=== PATIENT | male | born 1935 | race Caucasian/White ===

== ENCOUNTER 2023-07-30 02:36 | Outpatient (REF) | payer MEDICARE, MEDICAID, SELFPAY ==
--- OUTSIDE RECORDS SUMMARY | 2023-07-30 02:41 | XMS_ITS | CCD ---
Author Organization [facility] Care Team Providers Care Pitching Coach Name Role Phone Shea, Terrence R. Unavailable Unavailable Shea, Terrence R. Unavailable Unavailable Shea, Terrence R. Unavailable Unavailable Hoy, [phone] UNKNOWN Unavailable Unavailable Shea, Terrence R. Unavailable Unavailable Shea, Terrence R. Unavailable Unavailable Shea, Terrence R. Unavailable Unavailable Hoy, [phone] UNKNOWN Unavailable Unavailable MISC, DR WINSTON Admitting Unavailable MISC, DR WINSTON Attending Unavailable HOY ., DR HOLLIS Primary Care Unavailable MISC, DR WINSTON Consulting Unavailable HOY ., DR HOLLIS Admitting Unavailable HOY ., DR HOLLIS Attending Unavailable HOY ., DR HOLLIS Primary Care Unavailable HOY ., DR HOLLIS Consulting Unavailable HOY ., DR HOLLIS Admitting Unavailable HOY ., DR HOLLIS Attending Unavailable HOY ., DR HOLLIS Primary Care Unavailable HOY ., DR HOLLIS Consulting Unavailable HOY ., DR HOLLIS Primary Care Unavailable PAY ., DR HARRINGTON Admitting Unavailable PAY ., DR HARRINGTON Attending Unavailable ZIEBER, DR PETER Johansen Consulting Unavailable PAY ., DR HARRINGTON Consulting Unavailable HOY ., DR HOLLSI Primary Care Unavailable HOY ., DR HOLLIS Admitting Unavailable HOY ., DR HOLLIS Attending Unavailable HOY ., DR HOLLIS Consulting Unavailable LAZCANO ., DR FÁTIMA [place] Consulting Unavailable ZIEBER, DR PETER Johansen Consulting Unavailable HAY ., DR LOPEZ Consulting Unavailable HOY ., DR HOLLIS Admitting Unavailable HOY ., DR HOLLIS Attending Unavailable HOY ., DR HOLLIS Primary Care Unavailable HOY ., DR HOLLIS Consulting Unavailable Allergies Allergy Classification Reported Allergen(s) Allergy Type Date of Onset Reaction(s) Facility (1 source) penicillin; Translations: [penicillin] Drug Allergy [facility] Repository (1 source) Sulfonamides (Antibiotic); Translations: [sulfa drugs] Propensity to adverse reactions (disorder) AOF [facility] Repository (1 source) Penicillins Drug allergy (disorder) 4 [facility] Repository (1 source) Sulfonamides (Antibiotic) Drug allergy (disorder) 4 [facility] Repository Problems Active Problems Problem Classification Problem Date Documented Da te Episodic/Chronic Asthma (1 source) Unspecified asthma, uncomplicated; Translations: [UNSPECIFIED ASTHMA UNCOMPLICATED] Onset: 02-04-2022 Chronic Diabetes mellitus without complication (5 sources) Type 2 diabetes mellitus without complications; Translations: [TYPE 2 DM WITHOUT COMPLICATIONS] Onset: 01-01-2022 Chronic Essential hypertension (5 sources) Essential (primary) hypertension; Translations: [ESSENTIAL PRIMARY HYPERTENSION] Onset: 12-29-2021 Chronic Hyperplasia of prostate (1 source) Benign prostatic hyperplasia without lower urinary tract symptoms; Translations: [BENIGN PROSTATIC HYPRPLASIA WO LUTS] Onset: 02-04-2022 Chronic Unclassified (1 source) CONTACT W/AND (SUSP) EXPOS COVID-19; Translations: [CONTACT W/AND (SUSP) EXPOS COVID-19] Onset: 01-07-2022 Past or Other Problems Problem Classification Problem Date Documented Date Episodic/Chronic Abdominal pain (3 sources) Unspecified abdominal pain; Translations: [UNSPECIFIED ABDOMINAL PAIN] Onset: 01-02-2022 Episodic Acute and unspecified renal failure (1 source) Acute kidney failure, unspecified; Translations: [ACUTE KIDNEY FAILURE UNSPECIFIED] Onset: 01-07-2022 Episodic Biliary tract disease (1 source) Calculus of gallbladder with chronic cholecystitis without obstruction; Translations: [CALCU GB W/CHRON CHOLECYST W/O OBST] Onset: 01-07-2022 Episodic Diabetes mellitus without complication (1 source) Hyperglycemia, unspecified; Translations: [HYPERGLYCEMIA UNSPECIFIED] Onset: 01-07-2022 Episodic E Codes: Fall (1 source) Fall on same level from slipping, tripping and stumbling with subsequent striking against unspecified object, initial encounter; Translations: [FALL SAME LVL SLIP STRK UNS OBJ INT] Onset: 02-04-2022 Episodic Fluid and electrolyte disorders (5 sources) Dehydration; Translations: [DEHYDRATION] Onset: 01-01-2022 Episodic Genitourinary symptoms and ill-defined conditions (1 source) Anuria and oliguria; Translations: [ANURIA AND OLIGURIA] Onset: 01-07-2022 Episodic Immunizations and screening for infectious disease (1 source) Encounter for immunization; Translations: [ENCOUNTER FOR IMMUNIZATION] Onset: 02-04-2022 Episodic Open wounds of extremities (2 sources) Laceration without foreign body of left forearm, initial encounter; Translations: [Laceration without foreign body of left hand, initial encounter] Onset: 02-04-2022 Episodic Other aftercare (1 source) USP (current) use of aspirin; Translations: [SEAM STAY STITCHER CURRENT USE OF ASPIRIN] Onset: 02-04-2022 Episodic Other aftercare (1 source) Other senior care (current) drug therapy; Translations: [OTH SEAM STAY STITCHER CURRENT DRUG THERAPY] Onset: 02-04-2022 Episodic Other injuries and conditions due to external causes (4 sources) Other specified injuries of head, initial encounter; Translations: [OTH SPEC INJURIES HEAD INITIAL ENC] Onset: 02-02-2022 Episodic Other screening for suspected conditions (not mental disorders or infectious disease) (1 source) Other specified abnormal findings of blood chemistry; Translations: [OTH SPEC ABNORMAL FINDINGS BLD CHEM] Onset: 01-07-2022 Episodic Pulmonary heart disease (1 source) Personal history of pulmonary embolism; Translations: [PERSONAL HISTORY PULMONARY EMBOLISM] Onset: 02-04-2022 Episodic Residual codes; unclassified (1 source) Altered mental status, unspecified; Translations: [ALTERED MENTAL STATUS UNSPECIFIED] Onset: 01-01-2022 Episodic Screening and history of mental health and substance abuse codes (1 source) Personal history of nicotine dependence; Translations: [PERSONAL HISTORY OF NICOTINE DEPEND] Onset: 02-04-2022 Episodic Superficial injury; contusion (1 source) Contusion of other part of head, initial encounter; Translations: [CONTUS OTH PRT HEAD INITIAL ENCNTR] Onset: 02-04-2022 Episodic Urinary tract infections (5 sources) Acute cystitis with hematuria; Translations: [Urinary tract infection, site not specified] Onset: 01-07-2022 Episodic Results Test Name Value Interpretation Reference Range Facility CREATININEon 09-16-2022 Creatinine [Mass/Vol] 1.47 mg/dL Critically high 0.70-1.30 [facility] Comment on above: Performed By: #### C JESUS #### [facility] [address] [address] [address] Susan Matt EGFR-AF MONTENEGRIN 55 mL/min/1.73m2 Critically low >=60 [facility] Comment on above: Performed By: #### C JESUS #### [facility] [address] [address] [address] Susan Matt EGFR-NON AF MONTENEGRIN 45 mL/min/1.73m2 Critically low >=60 [facility] Comment on above: Performed By: #### C JESUS #### [facility] [address] [address] [address] Susan Matt GLYCOHEMOGLOBIN A1Con 2022 ADA RECOMMENDATION SEE BELOW Normal [facility] Comment on above: Result Comment: ADA RECOMMENDED LIMIT 4.0 - 6.0 ADA THERAPEUTIC TARGET < 7.0 ACTION SUGGESTED > 7.0 Performed By: #### I UMA B12FOL, PSAD, FERR #### [facility] [address] [address] [address] Susan Matt Glucose [Mass/Vol] 143 mg/dL Normal [facility] Comment on above: Performed By: #### I Kris EATONFOL PSAD, FERR #### [facility] [address] [address] [address] Susan Matt HbA1c (Bld) [Mass fraction] 6.6 % Critically high 4.5-6.2 [facility] Comment on above: Performed By: #### I UMA B12FOL, PSAD, FERR #### [facility] [address] [place] [address] HEAD WO CONon 02-02-2022 CT HEAD WO CON EXAMINATION: CT HEAD WO CON HISTORY: HEADACHE ; fell hitting top of head on floor; left periorbital bruising COMPARISON: No relevant comparison available. TECHNIQUE: Axial CT images were obtained without IV contrast. Dose reduction techniques were achieved by using automated exposure control and/or adjustment of mA and/or kV according to patient size and/or use of iterative reconstruction technique. FINDINGS: BRAIN: No edema, hemorrhage, mass, acute infarction, or inappropriate atrophy. CSF SPACES: No hydrocephalus, subarachnoid hemorrhage, or mass. Appropriate for age. SKULL: No fracture, mass, or other significant visible lesion. SINUSES: No significant mucosal thickening or fluid on the limited views. ORBITS: No appreciable abnormality on the limited views. OTHER: Mild subcutaneous edema/bruising cephalad to left orbit. No radiopaque foreign body. IMPRESSION: 1. No appreciable acute abnormality of the brain; age consistent chronic changes. 2. No fracture or calvarium. 3. Mild left supraorbital subcutaneous edema/bruising. No fracture. Electronically authenticated by: PETER REBOLLAR Date: 2022-02-02 11:57 Normal [facility] CULTURE URINEon 01-21-2022 CULTURE URINE Culture Observations : MODERATE GROWTH OF MIXED SKIN [place]COL[place]. NO POTENTIAL PATHOGENS SEEN. Normal [facility] Comment on above: Performed By: #### L IPA #### [facility] [address] [place] [address] Dr. Susan Matt UA RANDOM W/MICROSCOPICon BACTERIA NONE SEEN Normal NONE SEEN [facility] Comment on above: Performed By: #### L ACT #### [facility] [address] [place] [address] Dr. Susan Matt Bilirubin Ql (U) Negative Normal NEGATIVE [facility] Comment on above: Performed By: #### L ACT #### [facility] [address] [place] [address] Dr. Susan Matt CAST SEEN Abnormal NONE SEEN [facility] Comment on above: Performed By: #### L ACT #### [facility] [address] [place] [address] Dr. Susan Matt Clarity (U) CLEAR Normal CLEAR [facility] Comment on above: Performed By: #### L ACT #### [facility] [address] [place] [address] Dr. Susan Matt Color (U) YELLOW Normal YELLOW [facility] Comment on above: Performed By: #### L ACT #### [facility] [address] [place] [address] Dr. Susan Matt Crystals LM Nom (Urine sed) NONE SEEN Normal NONE SEEN [facility] Comment on above: Performed By: #### L ACT #### [facility] [address] [address] [address] Susan Matt Epithelial cells LM Ql (Urine sed) RARE Normal NONE SEEN /RARE [facility] Comment on above: Performed By: #### L ACT #### [facility] [address] [address] [address] Susan Matt Glucose Ql (U) Negative Normal NEGATIVE [facility] Comment on above: Performed By: #### L ACT #### [facility] [address] [place] [address] Dr. Susan Matt Hemoglobin Ql (U) Negative Normal NEGATIVE [facility] Comment on above: Performed By: #### L ACT #### [facility] [address] [place] [address] Dr. Susan Matt HYALINE CAST RARE Normal [facility] Comment on above: Performed By: #### L ACT #### [facility] [address] [place] [address] Dr. Susan Matt Ketones Ql (U) Negative Normal NEGATIVE [facility] Comment on above: Performed By: #### L ACT #### [facility] [address] [address] [address] Susan Matt LEUKOCYTES Negative Normal NEGATIVE [facility] Comment on above: Performed By: #### L ACT #### [facility] [address] [place] [address] Dr. Susan Matt MUCOUS NONE SEEN Normal NONE SEEN [facility] Comment on above: Performed By: #### L ACT #### [facility] [address] [place] [address] Dr. Susan Matt Nitrite Ql (U) Negative Normal NEGATIVE [facility] Comment on above: Performed By: #### L ACT #### [facility] [address] [place] [address] Dr. Susan Matt pH (U) 6.0 [pH] Normal 5-9 [facility] Comment on above: Performed By: #### L ACT #### [facility] [address] [place] [address] Dr. Susan Matt RBC 0-2 Normal 0-2 [facility] Comment on above: Performed By: #### L ACT #### [facility] [address] [place] [address] Dr. Susan Matt SPEC GRAVITY 1.025 Normal 1.005-<=1.025 [facility] Comment on above: Performed By: #### L ACT #### [facility] [address] [place] [address] Dr. Susan Matt SPERMATOZOA, UR PRESENT Abnormal [facility] Comment on above: Performed By: #### L ACT #### [facility] [address] [place] [address] Dr. Susan Matt UA PROTEIN Negative Normal NEGATIVE/ TRACE [facility] Comment on above: Performed By: #### L ACT #### [facility] [address] [place] [address] Dr. Susan Matt Urobilinogen Qn (U) 0.2 {Adwoa'U}/dL Normal 0.2 - 1. 0 [facility] Comment on above: Performed By: #### L ACT #### [facility] [address] [place] [address] Dr. Susan Matt WBC 2-5 Abnormal NONE SEEN [facility] Comment on above: Performed By: #### L ACT #### [facility] [address] [place] [address] Dr. Susan Matt AMYLASEon 01-04-2022 Amylase [Catalytic activity/Vol] 35 U/L Normal 25-115 [facility] Comment on above: Performed By: #### I UMA, B12FOL, PSAD, FERR #### [facility] [address] [place] [address] Dr. Susan Matt CBC AUTO DIFFon 01-04-2022 BASO # 0.1 103/ul Normal 0.0-0.1 [facility] Comment on above: Performed By: #### I UMA, B12FOL, PSAD, FERR #### [facility] [address] [place] [address] Dr. Susan Matt Basophils/100 WBC (Bld) 0.9 % Normal 0.2-2.0 [facility] Comment on above: Performed By: #### I UMA, B12FOL, PSAD, FERR #### [facility] [address] [place] [address] Dr. Susan Matt EO # 0.5 103/ul Normal 0.0-0.7 [facility] Comment on above: Performed By: #### I UMA, B12FOL, PSAD, FERR #### [facility] [address] [place] [address] Dr. Susan Matt Eosinophils/100 WBC (Bld) 6.6 % Normal 0.9-7.0 [facility] Comment on above: Performed By: #### I UMA, B12FOL, PSAD, FERR #### [facility] [address] [place] [address] Dr. Susan Matt Erythrocyte distribution width (RBC) [Ratio] 13.7 % Normal 11.0-15.0 [facility] Comment on above: Performed By: #### I UMA, B12FOL, PSAD, FERR #### [facility] [address] [place] [address] Dr. Susan Matt Hematocrit (Bld) [Volume fraction] 36.0 % Critically low 42.0-54.0 [facility] Comment on above: Performed By: #### I UMA, B12FOL, PSAD, FERR #### [facility] [address] [place] [address] Dr. Susan Matt Hemoglobin (Bld) [Mass/Vol] 11.9 g/dL Critically low 14.0-18.0 [facility] Comment on above: Performed By: #### I UMA, B12FOL, PSAD, FERR #### [facility] [address] [place] [address] Dr. Susan Matt IG # 0.13 10e3/ul Critically high 0.00-0.03 [facility] Comment on above: Performed By: #### I UMA, B12FOL, PSAD, FERR #### [facility] [address] [place] [address] Dr. Susan Matt IG % 1.6 % Critically high 0.0-0.5 [facility] Comment on above: Performed By: #### I MUA, B12FOL, PSAD, FERR #### [facility] [address] [place] [address] Dr. Susan Matt LYMPH # 0.6 103/ul Critically low 1.2-3.8 [facility] Comment on above: Performed By: #### I UMA, B12FOL, PSAD, FERR #### [facility] [address] [place] [address] Dr. Susan Matt Lymphocytes/100 WBC (Bld) 7.0 % Critically low 20.5-60.0 [facility] Comment on above: Performed By: #### I UMA, B12FOL, PSAD, FERR #### [facility] [address] [place] [address] Dr. Susan Matt MANUAL DIFF REQ NO Normal [facility] Comment on above: Performed By: #### I UMA, B12FOL, PSAD, FERR #### [facility] [address] [place] [address] Dr. Susan Matt MCH (RBC) [Entitic mass] 31.7 pg Normal 25.9-34.0 [facility] Comment on above: Performed By: #### I UMA, B12FOL, PSAD, FERR #### [facility] [address] [place] [address] Dr. Susan Matt MCHC (RBC) [Mass/Vol] 33.1 g/dL Normal 29.9-35.2 [facility] Comment on above: Performed By: #### I UMA, B12FOL, PSAD, FERR #### [facility] [address] [place] [address] Dr. Susan Matt MCV (RBC) [Entitic vol] 96.0 fL Critically high 80.0-94.0 [facility] Comment on above: Performed By: #### I UMA, B12FOL, PSAD, FERR #### [facility] [address] [place] [address] Dr. Susan Matt MONO # 1.0 103/ul Critically high 0.3-0.8 [facility] Comment on above: Performed By: #### I UMA, B12FOL, PSAD, FERR #### [facility] [address] [place] [address] Dr. Susan Matt Monocytes/100 WBC (Bld) 12.6 % Critically high 1.7-12.0 [facility] Comment on above: Performed By: #### I UMA, B12FOL, PSAD, FERR #### [facility] [address] [place] [address] Dr. Susan Matt NEUT # 5.7 103/ul Normal 1.4-6.5 [facility] Comment on above: Performed By: #### I UMA, B12FOL, PSAD, FERR #### [facility] [address] [place] [address] Dr. Susan Matt Neutrophils/100 WBC (Bld) 71.3 % Normal 43.0-75.0 [facility] Comment on above: Performed By: #### I UMA, B12FOL, PSAD, FERR #### [facility] [address] [place] [address] Dr. Susan Matt Platelet mean volume (Bld) [Entitic vol] 12.2 fL Normal 9.5-13.5 [facility] Comment on above: Performed By: #### I UMA, B12FOL, PSAD, FERR #### [facility] [address] [place] [address] Dr. Susan Matt PLT 156 103/ul Normal 150-450 [facility] Comment on above: Performed By: #### I UMA, B12FOL, PSAD, FERR #### [facility] [address] [place] [address] Dr. Susan Matt RBC 3.75 106/ul Critically low 4.70-6.10 [facility] Comment on above: Performed By: #### I UMA, B12FOL, PSAD, FERR #### [facility] [address] [place] [address] Dr. Susan Matt WBC 8.0 103/ul Normal 4.0-11.0 [facility] Comment on above: Performed By: #### I UMA, B12FOL, PSAD, FERR #### [facility] [address] [place] [address] Dr. Susan Matt LIPASEon 01-04-2022 Lipase [Catalytic activity/Vol] 34.0 U/L Critically low 73.0-393.0 [facility] Comment on above: Performed By: #### L ACT #### [facility] [address] [place] [address] Dr. Susan Matt POINT OF CARE GLUCOSEon 12-09 Glucose [Mass/Vol] 184 mg/dL Critically high 74-106 [facility] Comment on above: Performed By: #### I UMA, B12FOL, PSAD, FERR #### [facility] [address] [place] [address] Dr. Susan Matt Glucose [Mass/Vol] 212 mg/dL Critically high 74-106 [facility] Comment on above: Performed By: #### I UMA, B12FOL, PSAD, FERR #### [facility] [address] [place] [address] Dr. Susan Matt PROF 14(COMP METB)on 022 Albumin [Mass/Vol] 2.6 g/dL Critically low 3.4-5.0 [facility] Comment on above: Performed By: #### I UMA, B12FOL, PSAD, FERR #### [facility] [address] [place] [address] Dr. Susan Matt Albumin/Globulin [Mass ratio] 0.9 {ratio} Normal [facility] Comment on above: Performed By: #### I UMA, B12FOL, PSAD, FERR #### [facility] [address] [place] [address] Dr. Susan Matt ALP [Catalytic activity/Vol] 77 U/L Normal 46-116 [facility] Comment on above: Performed By: #### I UMA, B12FOL, PSAD, FERR #### [facility] [address] [place] [address] Dr. Susan Matt ALT [Catalytic activity/Vol] 29 U/L Normal 16-63 [facility] Comment on above: Performed By: #### I UMA, B12FOL, PSAD, FERR #### [facility] [address] [place] [address] Dr. Susan Matt Anion gap [Moles/Vol] 11.6 mmol/L Normal [facility] Comment on above: Performed By: #### I UMA, B12FOL, PSAD, FERR #### [facility] [address] [place] [address] Dr. Susan Matt AST [Catalytic activity/Vol] 15 U/L Normal 15-37 [facility] Comment on above: Performed By: #### I UMA, B12FOL, PSAD, FERR #### [facility] [address] [place] [address] Dr. Susan Matt Bilirubin [Mass/Vol] 0.3 mg/dL Normal 0.2-1.0 [facility] Comment on above: Performed By: #### I UMA, B12FOL, PSAD, FERR #### [facility] [address] [place] [address] Dr. Susan Matt Calcium [Mass/Vol] 8.2 mg/dL Critically low 8.5-10.1 [facility] Comment on above: Performed By: #### I UMA, B12FOL, PSAD, FERR #### [facility] [address] [place] [address] Dr. Susan Matt Chloride [Moles/Vol] 107 mmol/L Normal 98-107 [facility] Comment on above: Performed By: #### I UMA, B12FOL, PSAD, FERR #### [facility] [address] [place] [address] Dr. Susan Matt CO2 [Moles/Vol] 26.1 mmol/L Normal 21.0-32.0 [facility] Comment on above: Performed By: #### I UMA, B12FOL, PSAD, FERR #### [facility] [address] [place] [address] Dr. Susan Matt Creatinine [Mass/Vol] 1.19 mg/dL Normal 0.70-1.30 [facility] Comment on above: Performed By: #### I UMA, B12FOL, PSAD, FERR #### [facility] [address] [place] [address] Dr. Susan Matt EGFR-AF MONTENEGRIN >60 Normal >=60 [facility] Comment on above: Performed By: #### I UMA, B12FOL, PSAD, FERR #### [facility] [address] [place] [address] Dr. Susan Matt EGFR-NON AF MONTENEGRIN 58 mL/min/1.73m2 Critically low >=60 [facility] Comment on above: Performed By: #### I UMA, B12FOL, PSAD, FERR #### [facility] [address] [place] [address] Dr. Susan Matt Globulin (S) [Mass/Vol] 2.8 g/dL Normal [facility] Comment on above: Performed By: #### I UMA, B12FOL, PSAD, FERR #### [facility] [address] [place] [address] Dr. Susan Matt Glucose [Mass/Vol] 118 mg/dL Critically high 74-106 [facility] Comment on above: Performed By: #### I UMA, B12FOL, PSAD, FERR #### [facility] [address] [place] [address] Dr. Susan Matt Potassium [Moles/Vol] 3.7 mmol/L Normal 3.5-5.1 [facility] Comment on above: Performed By: #### I UMA, B12FOL, PSAD, FERR #### [facility] [address] [address] [address] Susan Matt Protein [Mass/Vol] 5.4 g/dL Critically low 6.4-8.2 [facility] [place] Comment on above: Performed By: #### I UMA, B12FOL, PSAD, FERR #### [facility] [address] [place] [address] Dr. Susan Matt Sodium [Moles/Vol] 141 mmol/L Normal 136-145 [facility] Comment on above: Performed By: #### I UMA, B12FOL, PSAD, FERR #### [facility] [address] [place] [address] Dr. Susan Matt Urea nitrogen [Mass/Vol] 16.0 mg/dL Normal 7.0-18.0 [facility] Comment on above: Performed By: #### I UMA, B12FOL, PSAD, FERR #### [facility] [address] [place] [address] Dr. Susan Matt Urea nitrogen/Creatinine [Mass ratio] 13.4 mg/mg Normal [facility] Comment on above: Performed By: #### I UMA, B12FOL, PSAD, FERR #### [facility] [address] [place] [address] Dr. Susan Matt AMYLASEon 01-03-2022 Amylase [Catalytic activity/Vol] 39 U/L Normal 25-115 [facility] Comment on above: Performed By: #### I UMA, B12FOL, PSAD, FERR #### [facility] [address] [place] [address] Dr. Susan Matt CBC AUTO DIFFon 01-03-2022 BASO # 0.1 103/ul Normal 0.0-0.1 [facility] Comment on above: Performed By: #### C BC #### [facility] [address] [place] [address] Dr. Susan Matt Basophils/100 WBC (Bld) 0.8 % Normal 0.2-2.0 [facility] Comment on above: Performed By: #### C BC #### [facility] [address] [place] [address] Dr. Susan Matt EO # 0.5 103/ul Normal 0.0-0.7 [facility] Comment on above: Performed By: #### C BC #### [facility] [address] [place] [address] Dr. Susan Matt Eosinophils/100 WBC (Bld) 5.9 % Normal 0.9-7.0 [facility] Comment on above: Performed By: #### C BC #### [facility] [address] [place] [address] Dr. Susan Matt Erythrocyte distribution width (RBC) [Ratio] 13.6 % Normal 11.0-15.0 [facility] Comment on above: Performed By: #### C BC #### [facility] [address] [place] [address] Dr. Susan Matt Hematocrit (Bld) [Volume fraction] 36.8 % Critically low 42.0-54.0 [facility] Comment on above: Performed By: #### C BC #### [facility] [address] [place] [address] Dr. Susan Matt Hemoglobin (Bld) [Mass/Vol] 12.2 g/dL Critically low 14.0-18.0 [facility] Comment on above: Performed By: #### C BC #### [facility] [address] [place] [address] Dr. Susan Matt IG # 0.13 10e3/ul Critically high 0.00-0.03 [facility] Comment on above: Performed By: #### C BC #### [facility] [address] [place] [address] Dr. Susan Matt IG % 1.5 % Critically high 0.0-0.5 [facility] Comment on above: Performed By: #### C BC #### [facility] [address] [place] [address] Dr. Susan Matt LYMPH # 0.9 103/ul Critically low 1.2-3.[address] [facility] Comment on above: Performed By: #### C BC #### [facility] [address] [place] [address] Dr. Susan Matt Lymphocytes/100 WBC (Bld) 10.1 % Critically low 20.5-60.0 [facility] Comment on above: Performed By: #### C BC #### [facility] [address] [place] [address] Dr. Susan Matt MANUAL DIFF REQ NO Normal [facility] Comment on above: Performed By: #### C BC #### [facility] [address] [place] [address] Dr. Susan Matt MCH (RBC) [Entitic mass] 31.5 pg Normal 25.9-34.0 [facility] Comment on above: Performed By: #### C BC #### [facility] [address] [address] [address] Susan Matt MCHC (RBC) [Mass/Vol] 33.2 g/dL Normal 29.9-35.2 [facility] Comment on above: Performed By: #### C BC #### [facility] [address] [address] [address] Susan Matt MCV (RBC) [Entitic vol] 95.1 fL Critically high 80.0-94.0 [facility] Comment on above: Performed By: #### C BC #### [facility] [address] [place] [address] Dr. Susan Matt MONO # 1.1 103/ul Critically high 0.3-0.8 [facility] Comment on above: Performed By: #### C BC #### [facility] [address] [place] [address] Dr. Susan Matt Monocytes/100 WBC (Bld) 12.0 % Normal 1.7-12.0 [facility] Comment on above: Performed By: #### C BC #### [facility] [address] [place] [address] Dr. Susan Matt NEUT # 6.1 103/ul Normal 1.4-6.5 [facility] Comment on above: Performed By: #### C BC #### [facility] [address] [place] [address] Dr. Susan Matt Neutrophils/100 WBC (Bld) 69.7 % Normal 43.0-75.0 [facility] Comment on above: Performed By: #### C BC #### [facility] [address] [place] [address] Dr. Susan Matt Platelet mean volume (Bld) [Entitic vol] 12.2 fL Normal 9.5-13.5 [facility] Comment on above: Performed By: #### C BC #### [facility] [address] [place] [address] Dr. Susan Matt PLT 156 103/ul Normal 150-450 [facility] Comment on above: Performed By: #### C BC #### [facility] [address] [address] [address] Susan Matt RBC 3.87 106/ul Critically low 4.70-6.10 [facility] Comment on above: Performed By: #### C BC #### [facility] [address] [place] [address] Dr. Susan Matt WBC 8.8 103/ul Normal 4.0-11.0 [facility] Comment on above: Performed By: #### C BC #### [facility] [address] [place] [address] Dr. Susan Matt CULTURE URINEon 01-03-2022 CULTURE URINE Culture Observations : HEAVY GROWTH OF MIXED SKIN LINCOLN. NO POTENTIAL PATHOGENS SEEN. Culture Observations: PLEASE RESUBMIT CLEAN CATCH MID-STREAM URINE IF CLINICALLY INDICATED. Normal [facility] Comment on above: Performed By: #### L IPA #### [facility] [address] [place] [address] Dr. Susan Matt LIPASEon 01-03-2022 Lipase [Catalytic activity/Vol] 43.0 U/L Critically low 73.0-393.0 [facility] Comment on above: Performed By: #### L IPA #### [facility] [address] [place] [address] Dr. Susan Matt POINT OF CARE GLUCOSEon 12-09 Glucose [Mass/Vol] 144 mg/dL Critically high 74-106 [facility] Comment on above: Performed By: #### I UMA, B12FOL, PSAD, FERR #### [facility] [address] [place] [address] Dr. Susan Matt Glucose [Mass/Vol] 167 mg/dL Critically high 74-106 [facility] Comment on above: Performed By: #### L IPA #### [facility] [address] [place] [address] Dr. Susan Matt Glucose [Mass/Vol] 173 mg/dL Critically high 74-106 [facility] Comment on above: Performed By: #### I UMA B12FOL, PSAD, FERR #### [facility] [address] [address] [address] Susan Matt PROF 14(COMP METB)on 022 Albumin [Mass/Vol] 2.8 g/dL Critically low 3.4-5.0 [facility] Comment on above: Performed By: #### L ACT #### [facility] [address] [place] [address] Dr. Susan Matt Albumin/Globulin [Mass ratio] 0.9 {ratio} Normal [facility] Comment on above: Performed By: #### L ACT #### [facility] [address] [place] [address] Dr. Susan Matt ALP [Catalytic activity/Vol] 91 U/L Normal 46-116 [facility] Comment on above: Performed By: #### L ACT #### [facility] [address] [place] [address] Dr. Susan Matt ALT [Catalytic activity/Vol] 31 U/L Normal 16-63 [facility] Comment on above: Performed By: #### L ACT #### [facility] [address] [place] [address] Dr. Susan Matt Anion gap [Moles/Vol] 12.4 mmol/L Normal [facility] Comment on above: Performed By: #### L ACT #### [facility] [address] [place] [address] Dr. Susan Matt AST [Catalytic activity/Vol] 15 U/L Normal 15-37 [facility] Comment on above: Performed By: #### L ACT #### [facility] [address] [place] [address] Dr. Susan Matt Bilirubin [Mass/Vol] 0.3 mg/dL Normal 0.2-1.0 [facility] Comment on above: Performed By: #### L ACT #### [facility] [address] [place] [address] Dr. Susan Matt Calcium [Mass/Vol] 8.2 mg/dL Critically low 8.5-10.1 [facility] Comment on above: Performed By: #### L ACT #### [facility] [address] [address] [address] Susan Matt Chloride [Moles/Vol] 107 mmol/L Normal 98-107 [facility] Comment on above: Performed By: #### L ACT #### [facility] [address] [address] [address] Susan Matt CO2 [Moles/Vol] 25.2 mmol/L Normal 21.0-32.0 [facility] Comment on above: Performed By: #### L ACT #### [facility] [address] [address] [address] Susan Matt Creatinine [Mass/Vol] 1.32 mg/dL Critically high 0.70-1.30 [facility] Comment on above: Performed By: #### L ACT #### [facility] [address] [address] [address] Susan Matt EGFR-AF MONTENEGRIN >60 Normal >=60 [facility] Comment on above: Performed By: #### L ACT #### [facility] [address] [address] [address] Susan Matt EGFR-NON AF MONTENEGRIN 51 mL/min/1.73m2 Critically low >=60 [facility] Comment on above: Performed By: #### L ACT #### [facility] [address] [address] [address] Susan Matt Globulin (S) [Mass/Vol] 3.0 g/dL Normal [facility] Comment on above: Performed By: #### L ACT #### [facility] [address] [address] [address] Susan Matt Glucose [Mass/Vol] 104 mg/dL Normal 74-106 [facility] Comment on above: Performed By: #### L ACT #### [facility] [address] [address] [address] Susan Matt Potassium [Moles/Vol] 3.6 mmol/L Normal 3.5-5.1 [facility] Comment on above: Performed By: #### L ACT #### [facility] [address] [address] [address] Susan Matt Protein [Mass/Vol] 5.8 g/dL Critically low 6.4-8.2 [facility] Comment on above: Performed By: #### L ACT #### [facility] [address] [place] [address] Dr. Susan Matt Sodium [Moles/Vol] 141 mmol/L Normal 136-145 [facility] Comment on above: Performed By: #### L ACT #### [facility] [address] [address] [address] Susan Matt Urea nitrogen [Mass/Vol] 27.0 mg/dL Critically high 7.0-18.0 [facility] Comment on above: Performed By: #### L ACT #### [facility] [address] [place] [address] Dr. Susan Matt Urea nitrogen/Creatinine [Mass ratio] 20.5 mg/mg Normal [facility] Comment on above: Performed By: #### L ACT #### [facility] [address] [place] [address] Dr. Susan Matt UA (CLEAN/CATCH) HARM REDUCTION WORKER/MICRO I F IND.on 01-03-2022 Bilirubin Ql (U) Negative Normal NEGATIVE [facility] Comment on above: Performed By: #### I UMA, B12FOL, PSAD, FERR #### [facility] [address] [place] [address] Dr. Susan Matt Clarity (U) CLEAR Normal CLEAR [facility] Comment on above: Performed By: #### I UMA, B12FOL, PSAD, FERR #### [facility] [address] [place] [address] Dr. Susan Matt Color (U) LT. YELLOW Normal YELLOW [facility] Comment on above: Performed By: #### I UMA, B12FOL, PSAD, FERR #### [facility] [address] [place] [address] Dr. Susan Matt Glucose Ql (U) Negative Normal NEGATIVE [facility] Comment on above: Performed By: #### I UMA, B12FOL, PSAD, FERR #### [facility] [address] [address] [address] Susan Matt Hemoglobin Ql (U) Negative Normal NEGATIVE [facility] Comment on above: Performed By: #### I UMA, B12FOL, PSAD, FERR #### [facility] [address] [place] [address] Dr. Susan Matt Ketones Ql (U) Negative Normal NEGATIVE [facility] Comment on above: Performed By: #### I UMA, B12FOL, PSAD, FERR #### [facility] [address] [place] [address] Dr. Susan Matt LEUKOCYTES SMALL Abnormal NEGATIVE [facility] Comment on above: Performed By: #### I UMA, B12FOL, PSAD, FERR #### [facility] [address] [place] [address] Dr. Susan Matt Nitrite Ql (U) Negative Normal NEGATIVE [facility] Comment on above: Performed By: #### I UMA, B12FOL, PSAD, FERR #### [facility] [address] [place] [address] Dr. Susan Matt pH (U) 6.0 [pH] Normal 5-9 [facility] Comment on above: Performed By: #### I UMA, B12FOL, PSAD, FERR #### [facility] [address] [place] [address] Dr. Susan Matt SPEC GRAVITY 1.015 Normal 1.005-<=1.025 [facility] Comment on above: Performed By: #### I UMA, B12FOL, PSAD, FERR #### [facility] [address] [place] [address] Dr. Susan Matt UA PROTEIN Negative Normal NEGATIVE/ TRACE [facility] Comment on above: Performed By: #### I UMA, B12FOL, PSAD, FERR #### [facility] [address] [place] [address] Dr. Susan Matt UR MICRO IND INDICATED Normal [facility] Comment on above: Performed By: #### I UMA, B12FOL, PSAD, FERR #### [facility] [address] [place] [address] Dr. Susan Matt Urobilinogen Qn (U) 0.2 {Adwoa'U}/dL Normal 0.2 - 1. 0 [facility] Comment on above: Performed By: #### I UMA, B12FOL, PSAD, FERR #### [facility] [address] [address] [address] Susan Matt URINE MICROSCOPIC ONLYon BACTERIA SMALL Abnormal NONE SEEN [facility] Comment on above: Performed By: #### I UMA, B12FOL, PSAD, FERR #### [facility] [address] [address] [address] Susan Matt Bacteria identified Cx Nom (U) INDICATED Normal [facility] Comment on above: Performed By: #### I UMA, B12FOL, PSAD, FERR #### [facility] [address] [place] [address] Dr. Susan Matt CAST NONE SEEN Normal NONE SEEN [facility] Comment on above: Performed By: #### I UMA, B12FOL, PSAD, FERR #### [facility] [address] [place] [address] Dr. Susan Matt Crystals LM Nom (Urine sed) NONE SEEN Normal NONE SEEN [facility] Comment on above: Performed By: #### I UMA, B12FOL, PSAD, FERR #### [facility] [address] [place] [address] Dr. Susan Matt Epithelial cells LM Ql (Urine sed) FEW Abnormal NONE SEEN /RARE [facility] Comment on above: Performed By: #### I UMA, B12FOL, PSAD, FERR #### [facility] [address] [place] [address] Dr. Susan Matt MUCOUS NONE SEEN Normal NONE SEEN [facility] Comment on above: Performed By: #### I UMA, B12FOL, PSAD, FERR #### [facility] [address] [place] [address] Dr. Susan Matt RBC 2-5 Abnormal 0-2 [facility] Comment on above: Performed By: #### I UMA, B12FOL, PSAD, FERR #### [facility] [address] [address] [address] Susan Matt WBC 75-100 Abnormal NONE SEEN [facility] Comment on above: Performed By: #### I UMA, B12FOL, PSAD, FERR #### [facility] [address] [place] [address] Dr. Susna Matt BNPon 01-02-2022 Natriuretic peptide B (Bld) [Mass/Vol] 449.0 pg/mL Normal <=1,800.0 [facility] Comment on above: Performed By: #### L ACT #### [facility] [address] [address] [address] Susan Matt CARDIAC DELMI ADMITon 022 CK [Catalytic activity/Vol] 99 U/L Normal 39-308 [facility] Comment on above: Performed By: #### L ACT #### [facility] [address] [place] [address] Dr. Susan Matt CK.MB [Mass/Vol] 2.29 ng/mL Normal <=3.60 [facility] Comment on above: Performed By: #### L ACT #### [facility] [address] [place] [address] Dr. Susan Matt HSTROP 11.1 pg/mL Normal 4.0-76.1 [facility] Comment on above: Result Comment: CUT- OFF POINTS HAVE BEEN ESTABLISHED BASED ON THE FOURTH UNIVERSAL DEFINITIONS OF MYOCARDIAL INFARCTION. THE UPPER REFERENCE LIMIT (URL) OF TROPONIN, DEFINED THE 99TH PERCENTILE OF cTnI DISTRIBUTION IN A REFERENCE POPULATION, HAS BEEN CONFIRMED THE DECISION THRESHOLD FOR DC DIAGNOSIS. Performed By: #### L ACT #### [facility] [address] [place] [address] Dr. Susan Matt RAFAEL 156 ng/mL Critically high 16-96 [facility] Comment on above: Performed By: #### L ACT #### [facility] [address] [place] [address] Dr. Susan Mtat CBC AUTO DIFFon 01-02-2022 BASO # 0.1 103/ul Normal 0.0-0.1 [facility] Comment on above: Performed By: #### L ACT #### [facility] [address] [address] [address] Susan Matt Basophils/100 WBC (Bld) 0.7 % Normal 0.2-2.0 [facility] Comment on above: Performed By: #### L ACT #### [facility] [address] [address] [address] Susan Matt EO # 0.4 103/ul Normal 0.0-0.7 [facility] Comment on above: Performed By: #### L ACT #### [facility] [address] [address] [address] Susan Matt Eosinophils/100 WBC (Bld) 4.4 % Normal 0.9-7.0 [facility] Comment on above: Performed By: #### L ACT #### [facility] [address] [place] [address] Dr. Susan Matt Erythrocyte distribution width (RBC) [Ratio] 13.6 % Normal 11.0-15.0 [facility] Comment on above: Performed By: #### L ACT #### [facility] [address] [address] [address] Susan Matt Hematocrit (Bld) [Volume fraction] 40.2 % Critically low 42.0-54.0 [facility] Comment on above: Performed By: #### L ACT #### [facility] [address] [address] [address] Susan Matt Hemoglobin (Bld) [Mass/Vol] 13.3 g/dL Critically low 14.0-18.0 [facility] Comment on above: Performed By: #### L ACT #### [facility] [address] [address] [address] Susan Matt IG # 0.15 10e3/ul Critically high 0.00-0.03 [facility] Comment on above: Performed By: #### L ACT #### [facility] [address] [address] [address] Susan Matt IG % 1.6 % Critically high 0.0-0.5 [facility] Comment on above: Performed By: #### L ACT #### [facility] [address] [address] [address] Susan Matt LYMPH # 1.3 103/ul Normal 1.2-3.8 [facility] Comment on above: Performed By: #### L ACT #### [facility] [address] [address] [address] Susan Matt Lymphocytes/100 WBC (Bld) 13.2 % Critically low 20.5-60.0 [facility] Comment on above: Performed By: #### L ACT #### [facility] [address] [address] [address] Susan Matt MANUAL DIFF REQ NO Normal [facility] Comment on above: Performed By: #### L ACT #### [facility] [address] [place] [address] Dr. Susan Matt MCH (RBC) [Entitic mass] 31.3 pg Normal 25.9-34.0 [facility] Comment on above: Performed By: #### L ACT #### [facility] [address] [address] [address] Susan Matt MCHC (RBC) [Mass/Vol] 33.1 g/dL Normal 29.9-35.2 [facility] Comment on above: Performed By: #### L ACT #### [facility] [address] [address] [address] Susan Matt MCV (RBC) [Entitic vol] 94.6 fL Critically high 80.0-94.0 [facility] Comment on above: Performed By: #### L ACT #### [facility] [address] [address] [address] Susan Matt MONO # 1.2 103/ul Critically high 0.3-0.8 [facility] Comment on above: Performed By: #### L ACT #### [facility] [address] [address] [address] Susan Matt Monocytes/100 WBC (Bld) 13.0 % Critically high 1.7-12.0 [facility] Comment on above: Performed By: #### L ACT #### [facility] [address] [address] [address] Susan Matt NEUT # 6.4 103/ul Normal 1.4-6.5 [facility] Comment on above: Performed By: #### L ACT #### [facility] [address] [id number] Susan Matt Neutrophils/100 WBC (Bld) 67.1 % Normal 43.0-75.0 [facility] Comment on above: Performed By: #### L ACT #### [facility] [address] [place] [address] Dr. Susan Matt Platelet mean volume (Bld) [Entitic vol] 12.2 fL Normal 9.5-13.5 [facility] Comment on above: Performed By: #### L ACT #### [facility] [address] [place] [address] Dr. Susan Matt PLT 181 103/ul Normal 150-450 [facility] Comment on above: Performed By: #### L ACT #### [facility] [address] [place], [place] [address] Dr. Susan Matt RBC 4.25 106/ul Critically low 4.70-6.10 [facility] Comment on above: Performed By: #### L ACT #### [facility] [address] [place], [place] [address] Dr. Susan Matt WBC 9.5 103/ul Normal 4.0-11.0 [facility] Comment on above: Performed By: #### L ACT #### [facility] [address] [place], [place] [id number] Dr. Susan Matt CT ABD/PELVIS WO CONon 01-02 CT ABD/PELVIS WO CON EXAMINATION: CT ABD/PELVIS WO CON HISTORY: Obstipation , dysuria, constipation COMPARISON: No relevant comparison available. TECHNIQUE: Axial, Coronal, and Sagittal images were created without IV contrast. Dose reduction techniques were achieved by using automated exposure control and/or adjustment of mA and/or kV according to patient size and/or use of iterative reconstruction technique. FINDINGS: LUNG BASES: Calcifications along posterior left pleura; possible pleural plaque. Lung bases are otherwise clear. LIVER: No enlargement, atrophy, suspicious density, or significant focal lesion. BILIARY: Mildly inflamed appearance of gallbladder with slight wall thickening, 4.5 mm, a few 6 mm stones, and mildly inflamed appearance of a normal diameter common bile duct. PANCREAS: No lesion, fluid collection, or abnormal duct dilatation. SPLEEN: No enlargement or focal lesion. ADRENALS: No mass or enlargement. KIDNEYS: No mass, obstruction, or calcification. BOWEL/MESENTERY: Diverticulosis of sigmoid colon. No visible mass, obstruction, or bowel wall thickening. Normal appendix. AORTA/VASCULAR: No aneurysm or dissection. RETROPERITONEUM: No mass or adenopathy. LYMPH NODES: No adenopathy. URINARY BLADDER: No visible focal wall thickening, lesion, or calculus. PELVIC ORGANS: No visible mass. Pelvic organs appropriate for patient age. ABDOMINAL WALL: Small fat filled inguinal hernias without strangulation. BONES: Marked osteopenia. No appreciable fracture. Moderate degenerative disc disease of lumbar spine. OTHER: Negative. IMPRESSION: 1. Cholelithiasis and acute versus chronic cholecystitis. 2. Diverticulosis. Electronically authenticated by: PETER REBOLLAR Date: 2022-01-02 17:32 Normal [facility] CULTURE BLOODon 01-02-2022 Microscopic examination of blood, culture Culture Observations: NO GROWTH AT 5 DAYS. Normal [facility] Comment on above: Performed By: #### L IPA #### [facility] [address] [address] [address] Susan Matt Microscopic examination of blood, culture Culture Observations: NO GROWTH AT 5 DAYS. Normal [facility] Comment on above: Performed By: #### L IPA #### [facility] [address] [place] [address] Dr. Susan Matt [facility]09 SARS-CoV-2 (COVID-19) RNA KIA+probe Ql (Unsp spec) Not detected Normal NOT DETECTED [facility] Comment on above: Result Comment: When diagnostic testing is negative, the possibility of a false negative should be considered in the context of a patient's recent exposures and the presence of clinical signs and symptoms consistent with SARS-CoV-2. This test is not yet approved or cleared by the [place] FDA. When there are no FDA-approved or cleared tests available, and other criteria are met, FDA can make tests available under an emergency access mechanism called an Emergency Use Authorization (EUA). The EUA for this test is supported by the [place] of Health and Human Service's declaration that circumstances exist to justify the emergency use of in vitro diagnostics for the detection and/or diagnosis of the virus that causes COVID-19. This EUA will remain in effect for the duration of the COVID-19 declaration justifying emergency of IVDs, unless it is terminated or revoked by the FDA (after which the test may no longer be used). Performed By: #### C VDTBH #### [facility] [address] [place] [address] Dr. Susan Matt LACTATE/LACTIC ACIDon 2021 Lactate [Moles/Vol] 1.1 mmol/L Normal 0.4-1.9 [facility] Comment on above: Performed By: #### L IPA #### [facility] [address] [place] [address] Dr. Susan Matt Lactate [Moles/Vol] 2.6 mmol/L Critically high 0.4-1.9 [facility] Comment on above: Result Comment: repe ated Performed By: #### L ACT #### [facility] [address] [place] [address] Dr. Susan Matt POINT OF CARE GLUCOSEon 12-09 Glucose [Mass/Vol] 129 mg/dL Critically high 74-106 [facility] Comment on above: Performed By: #### P OCGLUC #### [facility] [address] [place] [address] Dr. Susan Matt PROF 14(COMP METB)on 022 Albumin [Mass/Vol] 3.4 g/dL Normal 3.4-5.0 [facility] Comment on above: Performed By: #### L ACT #### [facility] [address] [place] [address] Dr. Susan Matt Albumin/Globulin [Mass ratio] 0.9 {ratio} Normal [facility] Comment on above: Performed By: #### L ACT #### [facility] [address] [place] [address] Dr. Susan Matt ALP [Catalytic activity/Vol] 120 U/L Critically high 46-116 [facility] Comment on above: Performed By: #### L ACT #### [facility] [address] [address] [address] Susan Matt ALT [Catalytic activity/Vol] 39 U/L Normal 16-63 [facility] Comment on above: Performed By: #### L ACT #### [facility] [address] [address] [address] Susan Matt Anion gap [Moles/Vol] 16.1 mmol/L Normal Th e [facility] Comment on above: Performed By: #### L ACT #### [facility] [address] [address] [address] Susan Matt AST [Catalytic activity/Vol] 17 U/L Normal 15-37 [facility] Comment on above: Performed By: #### L ACT #### [facility] [address] [address] [address] Susan Matt Bilirubin [Mass/Vol] 0.4 mg/dL Normal 0.2-1.0 [facility] Comment on above: Performed By: #### L ACT #### [facility] [address] [address] [address] Susan Matt Calcium [Mass/Vol] 8.8 mg/dL Normal 8.5-10.1 [facility] Comment on above: Performed By: #### L ACT #### [facility] [address] [address] [address] Susan Matt Chloride [Moles/Vol] 102 mmol/L Normal 98-107 [facility] Comment on above: Performed By: #### L ACT #### [facility] [address] [address] [address] Susan Matt CO2 [Moles/Vol] 23.0 mmol/L Normal 21.0-32.0 [facility] Comment on above: Performed By: #### L ACT #### [facility] [address] [address] [address] Susan Matt Creatinine [Mass/Vol] 1.84 mg/dL Critically high 0.70-1.30 [facility] Comment on above: Performed By: #### L ACT #### [facility] [address] [place] [address] Dr. Susan Matt EGFR-AF MONTENEGRIN 42 mL/min/1.73m2 Critically low >=60 [facility] Comment on above: Performed By: #### L ACT #### [facility] [address] [address] [address] Susan Matt EGFR-NON AF MONTENEGRIN 35 mL/min/1.73m2 Critically low >=60 [facility] Comment on above: Performed By: #### L ACT #### [facility] [address] [place] [address] Dr. Susan Matt Globulin (S) [Mass/Vol] 3.6 g/dL Normal [facility] Comment on above: Performed By: #### L ACT #### [facility] [address] [place] [address] Dr. Susan Matt Glucose [Mass/Vol] 199 mg/dL Critically high 74-106 [facility] Comment on above: Performed By: #### L ACT #### [facility] [address] [place] [address] Dr. Susan Matt Potassium [Moles/Vol] 4.1 mmol/L Normal 3.5-5.1 [facility] Comment on above: Performed By: #### L ACT #### [facility] [address] [place] [address] Dr. Susan Matt Protein [Mass/Vol] 7.0 g/dL Normal 6.4-8.2 [facility] Comment on above: Performed By: #### L ACT #### [facility] [address] [address] [address] Susan Matt Sodium [Moles/Vol] 137 mmol/L Normal 136-145 [facility] Comment on above: Performed By: #### L ACT #### [facility] [address] [address] [address] Susan Matt Urea nitrogen [Mass/Vol] 38.0 mg/dL Critically high 7.0-18.0 [facility] Comment on above: Performed By: #### L ACT #### [facility] [address] [address] [address] Susan Matt Urea nitrogen/Creatinine [Mass ratio] 20.7 mg/mg Normal [facility] Comment on above: Performed By: #### L ACT #### [facility] [address] [address] [address] Susan Matt VIT D 25-OH LABCORPon 2021 Vitamin D, 25-Hydroxy 34.1 ng/mL Normal 30.0-100.0 [facility] Comment on above: Result Comment: Lety min D deficiency has been defined by the [place] of Medicine and an Endocrine Society practice guideline as a level of serum 25-OH vitamin D less than 20 ng/mL (1,2). The Endocrine Society went on to further define vitamin D insufficiency as a level between 21 and 29 ng/mL (2). 1. IOM ([place] of Medicine). 2010. Dietary reference intakes for calcium and D. Daily [place]: The National Academies Press. 2. Macario MF, [place], Antonio WHITE, et al. Evaluation, treatment, and prevention of vitamin D deficiency: an Endocrine Society clinical practice guideline. JCEM. 2010; 96(7):1911-30. Performed By: #### L ACT #### [facility] [address] [place] [address] Dr. Susan Matt AMMONIAon 12-29-2021 Ammonia (P) [Moles/Vol] 11 umol/L Normal 11-32 [facility] Comment on above: Performed By: #### L IPA #### [facility] [address] [address] [address] Susan Matt CBC AUTO DIFFon 12-29-2021 BASO # 0.1 103/ul Normal 0.0-0.1 [facility] Comment on above: Performed By: #### I UMA, B12FOL, PSAD, FERR #### [facility] [address] [address] [address] Susan Matt Basophils/100 WBC (Bld) 0.5 % Normal 0.2-2.0 [facility] Comment on above: Performed By: #### I UMA, B12FOL, PSAD, FERR #### [facility] [address] [place] [address] Dr. Susan Matt EO # 0.2 103/ul Normal 0.0-0.7 [facility] Comment on above: Performed By: #### I UMA, B12FOL, PSAD, FERR #### [facility] [address] [place] [address] Dr. Susan Matt Eosinophils/100 WBC (Bld) 1.6 % Normal 0.9-7.0 [facility] Comment on above: Performed By: #### I UMA, B12FOL, PSAD, FERR #### [facility] [address] [place] [address] Dr. Susan Matt Erythrocyte distribution width (RBC) [Ratio] 13.5 % Normal 11.0-15.0 [facility] Comment on above: Performed By: #### I UMA, B12FOL, PSAD, FERR #### [facility] [address] [place] [address] Dr. Susan Matt Hematocrit (Bld) [Volume fraction] 43.0 % Normal 42.0-54.0 [facility] Comment on above: Performed By: #### I UMA, B12FOL, PSAD, FERR #### [facility] [address] [place] [address] Dr. Susan Matt Hemoglobin (Bld) [Mass/Vol] 14.2 g/dL Normal 14.0-18.0 [facility] Comment on above: Performed By: #### I UMA, B12FOL, PSAD, FERR #### [facility] [address] [place] [address] Dr. Susan Matt IG # 0.09 10e3/ul Critically high 0.00-0.03 [facility] Comment on above: Performed By: #### I UMA, B12FOL, PSAD, FERR #### [facility] [address] [place] [address] Dr. Susan Matt IG % 0.7 % Critically high 0.0-0.5 [facility] Comment on above: Performed By: #### I UMA, B12FOL, PSAD, FERR #### [facility] [address] [place] [address] Dr. Susan Matt LYMPH # 1.4 103/ul Normal 1.2-3.8 [facility] Comment on above: Performed By: #### I UMA, B12FOL, PSAD, FERR #### [facility] [address] [place] [address] Dr. Susan Matt Lymphocytes/100 WBC (Bld) 11.6 % Critically low 20.5-60.0 [facility] Comment on above: Performed By: #### I UMA, B12FOL, PSAD, FERR #### [facility] [address] [place] [address] Dr. Susan Matt MANUAL DIFF REQ NO Normal [facility] Comment on above: Performed By: #### I UMA, B12FOL, PSAD, FERR #### [facility] [address] [place] [address] Dr. Susan Matt MCH (RBC) [Entitic mass] 31.1 pg Normal 25.9-34.0 [facility] Comment on above: Performed By: #### I UMA, B12FOL, PSAD, FERR #### [facility] [address] [place] [address] Dr. Susan Matt MCHC (RBC) [Mass/Vol] 33.0 g/dL Normal 29.9-35.2 [facility] Comment on above: Performed By: #### I UMA, B12FOL, PSAD, FERR #### [facility] [address] [place] [address] Dr. Susan Matt MCV (RBC) [Entitic vol] 94.3 fL Critically high 80.0-94.0 [facility] Comment on above: Performed By: #### I UMA, B12FOL, PSAD, FERR #### [facility] [address] [place] [address] Dr. Susan Matt MONO # 1.1 103/ul Critically high 0.3-0.8 [facility] Comment on above: Performed By: #### I UMA, B12FOL, PSAD, FERR #### [facility] [address] [place] [address] Dr. Susan Matt Monocytes/100 WBC (Bld) 9.2 % Normal 1.7-12.0 [facility] Comment on above: Performed By: #### I UMA, B12FOL, PSAD, FERR #### [facility] [address] [place] [address] Dr. Susan Matt NEUT # 9.2 103/ul Critically high 1.4-6.5 [facility] Comment on above: Performed By: #### I UMA, B12FOL, PSAD, FERR #### [facility] [address] [place] [address] Dr. Susan Matt Neutrophils/100 WBC (Bld) 76.4 % Critically high 43.0-75.0 [facility] Comment on above: Performed By: #### I UMA, B12FOL, PSAD, FERR #### [facility] [address] [place] [address] Dr. Susan Matt Platelet mean volume (Bld) [Entitic vol] 11.9 fL Normal 9.5-13.5 [facility] Comment on above: Performed By: #### I UMA, B12FOL, PSAD, FERR #### [facility] [address] [place] [address] Dr. Susan Matt PLT 200 103/ul Normal 150-450 [facility] Comment on above: Performed By: #### I UMA, B12FOL, PSAD, FERR #### [facility] [address] [place] [address] Dr. Susan Matt RBC 4.56 106/ul Critically low 4.70-6.10 [facility] Comment on above: Performed By: #### I UMA, B12FOL, PSAD, FERR #### [facility] [address] [place] [address] Dr. Susan Matt WBC 12.0 103/ul Critically high 4.0-11.0 [facility] Comment on above: Performed By: #### I UMA, B12FOL, PSAD, FERR #### [facility] [address] [place] [address] Dr. Susan Matt CULTURE URINEon 12-29-2021 CULTURE URINE Culture Observations : HEAVY GROWTH OF MIXED SKIN [place]. NO POTENTIAL PATHOGENS SEEN. Normal [facility] Comment on above: Performed By: #### L IPA #### [facility] [address] [place] [address] Dr. Susan Matt FERRITINon 12-29-2021 Ferritin [Mass/Vol] 1439.0 ng/mL Critically high 26.0-388. 0 [facility] Comment on above: Performed By: #### I UMA, B12FOL, PSAD, FERR #### [facility] [address] [place] [address] Dr. Susan Matt IRONon 12-29-2021 Iron [Mass/Vol] 74.0 ug/dL Normal 65.0-175.0 [facility] Comment on above: Performed By: #### I UMA, B12FOL, PSAD, FERR #### [facility] [address] [place] [address] Dr. Susan Matt PROF 14(COMP METB)on 022 Albumin [Mass/Vol] 3.8 g/dL Normal 3.4-5.0 [facility] Comment on above: Performed By: #### L ACT #### [facility] [address] [place] [address] Dr. Susan Matt Albumin/Globulin [Mass ratio] 1.1 {ratio} Normal [facility] Comment on above: Performed By: #### L ACT #### [facility] [address] [place] [address] Dr. Susan Matt ALP [Catalytic activity/Vol] 108 U/L Normal 46-116 [facility] Comment on above: Performed By: #### L ACT #### [facility] [address] [place] [address] Dr. Susan Matt ALT [Catalytic activity/Vol] 53 U/L Normal 16-63 [facility] Comment on above: Performed By: #### L ACT #### [facility] [address] [address] [address] Susan Matt Anion gap [Moles/Vol] 19.0 mmol/L Normal [facility] Comment on above: Performed By: #### L ACT #### [facility] [address] [address] [address] Susan Matt AST [Catalytic activity/Vol] 27 U/L Normal 15-37 [facility] Comment on above: Performed By: #### L ACT #### [facility] [address] [address] [address] Susan Matt Bilirubin [Mass/Vol] 0.9 mg/dL Normal 0.2-1.0 [facility] Comment on above: Performed By: #### L ACT #### [facility] [address] [address] [address] Susan Matt Calcium [Mass/Vol] 9.2 mg/dL Normal 8.5-10.1 [facility] Comment on above: Performed By: #### L ACT #### [facility] [address] [address] [address] Susan Matt Chloride [Moles/Vol] 98 mmol/L Normal 98-107 [facility] Comment on above: Performed By: #### L ACT #### [facility] [address] [address] [address] Susan Matt CO2 [Moles/Vol] 20.5 mmol/L Critically low 21.0-32.0 [facility] Comment on above: Performed By: #### L ACT #### [facility] [address] [address] [address] Susan Matt Creatinine [Mass/Vol] 1.62 mg/dL Critically high 0.70-1.30 [facility] Comment on above: Performed By: #### L ACT #### [facility] [address] [address] [address] Susan Matt EGFR-AF MONTENEGRIN 49 mL/min/1.73m2 Critically low >=60 [facility] Comment on above: Performed By: #### L ACT #### [facility] [address] [address] [address] Susan Matt EGFR-NON AF MONTENEGRIN 40 mL/min/1.73m2 Critically low >=60 [facility] Comment on above: Performed By: #### L ACT #### [facility] [address] [address] [address] Susan Matt Globulin (S) [Mass/Vol] 3.6 g/dL Normal [facility] Comment on above: Performed By: #### L ACT #### [facility] [address] [address] [address] Susan Matt Glucose [Mass/Vol] 178 mg/dL Critically high 74-106 T [facility] Comment on above: Performed By: #### L ACT #### [facility] [address] [address] [address] Susan Matt Potassium [Moles/Vol] 3.5 mmol/L Normal 3.5-5.1 [facility] Comment on above: Performed By: #### L ACT #### [facility] [address] [address] [address] Susan Matt Protein [Mass/Vol] 7.4 g/dL Normal 6.4-8.2 [facility] Comment on above: Performed By: #### L ACT #### [facility] [address] [address] [address] Susan Matt Sodium [Moles/Vol] 134 mmol/L Critically low 136-145 Th [facility] Comment on above: Performed By: #### L ACT #### [facility] [address] [address] [address] Susan Matt Urea nitrogen [Mass/Vol] 34.0 mg/dL Critically high 7.0-18.0 [facility] Comment on above: Performed By: #### L ACT #### [facility] [address] [id number] Susan Matt Urea nitrogen/Creatinine [Mass ratio] 21.0 mg/mg Normal [facility] Comment on above: Performed By: #### L ACT #### [facility] [address] [address] [address] Susan Matt TSHon 12-29-2021 TSH 2.613 uIU/mL Normal 0.358-3.740 [facility] Comment on above: Performed By: #### L ACT #### [facility] [address] [address] [address] Susan Matt VIT B12 AND FOLATEon 022 Cobalamin (Vitamin B12) [Mass/Vol] 2195.0 pg/mL Critically high 193.0-986.0 [facility] Comment on above: Performed By: #### I UMA, B12FOL, PSAD, FERR #### [facility] [address] [address] [address] Susan Matt FOLATE 10.90 ng/mL Normal 8.60-58.90 [facility] Comment on above: Performed By: #### I UMA, B12FOL, PSAD, FERR #### [facility] [address] [address] [address] Susan Matt Coding Summary.on 04-28-2017 Coding Summary. CODING DATE: 04/28/2017 FINAL [facility]SC STATUS: Home (Routine DC) PAYOR: Medicare APC DESCRIPTION 5375 Level 5 Urology and Related Services ADMIT DX: REASON FOR VISIT DX: N40.1 Benign prostatic hyperplasia with lower urinary tract symptoms FINAL DX: PRINCIPAL: N40.1 Benign prostatic hyperplasia with lower urinary tract symptoms SECONDARY: R31.0 Gross hematuria R31.21 Asymptomatic microscopic hematuria R39.14 Feeling of incomplete bladder emptying Z87.442 Personal history of urinary calculi E11.9 Type 2 diabetes mellitus without complications J45.909 Unspecified asthma, uncomplicated F32.9 Major depressive disorder, single episode, unspecified 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 However, the narrative phrase printed from the coding software may appear abbreviated, or result in slightly different terminology. Coded By: Flakita Álvarez Date Saved: 04/28/2017 03:18 pm Normal [facility] Main OR Intraoperative Recor don 04-27-2017 Main OR Intraoperative Record IntraOp Document Type FTURO Summary Primary Physician: Terrence Shea MD Finalized Date/Time: 04/27/17 12:06:35 Pt. Name: YOLIE CARDENAS /Sex: 1935 Male Med Rec #: [id number] Physician: Terrence Shea MD Financial #: [id number] Pt. Type: O Room/Bed: / Admit/Disch: 04/27/17 09:40:29 - Institution: Case Times FTURO Entry 1 Patient Times In Room 04/27/17 11:05:00 Out Room 04/27/17 11:25:00 Procedure Times Start 04/27/17 11:15:00 Stop 04/27/17 11:20:00 Anesthesia Times Last Modified By: Anaid HOLLAND, SIVANORCinthya 04/27/17 11:31:33 Case Attendance FTURO Entry 1 Entry 2 Entry 3 Case Attendee Anaid RN, CNOR, Angel MONSON, Mery Shea MD, Terrence Mendes Role Performed Yard Coordinator - Primary Scrub - Primary Surgeon - Primary Time In 04/27/17 11:05:00 04/27/17 11:05:00 04/27/17 11:05:00 Time Out 04/27/17 11:25:00 04/27/17 11:25:00 04/27/17 11:25:00 Procedure CYSTOSCOPY LOCAL CYSTOSCOPY LOCAL CYSTOSCOPY LOCAL REZUM(.) REZUM(.) REZUM(.) Comments Last Modified By: Anaid RN, CNOR, Anaid RN, CNOR, Anaid RN, SIVANOR, Cinthya 04/27/17 Cinthya 04/27/17 Cinthya 04/27/17 11:31:34 11:31:34 11:31:34 Surgical Procedures FTURO Entry 1 Procedure Description Procedure CYSTOSCOPY LOCAL REZUM Modifiers . Surgeon Description CYSTOSCOPY WITH REZUM Primary Procedure Yes Primary Surgeon Terrence Shea MD Start 04/27/17 11:15:00 Stop 04/27/17 11:20:00 Anesthesia Type Local Surgical Service Urology Wound Class 2 - Clean-Contaminated Last Modified By: YESSY Worrell RN, Ruthann 04/27/17 11:31:36 General Case Data FTURO Pre-Care Text: Classifies surgical wound, implements aseptic technique, initiates traffic control Entry 1 Case Information OR URO 1 FT Case Level None Wound Class 2 - Clean-Contaminated Specialty Urology Preop Diagnosis BPH WITH LUTS, Postop Same As Preop Yes INCOMPLETE EMPTYING, HEMATURIA Postop Diagnosis BPH WITH LUTS, Outcomes Met? Yes INCOMPLETE EMPTYING, HEMATURIA Last Modified By: YESSY Worrell RN, Ruthann 04/27/17 07:32:33 Post-Care Text: The patient is free from signs and symptoms of infection EU IntraOp - FTURO Pre-Care Text: Implements protective measures prior to operative or invasive procedure, confirms identity before the operative or invasive procedure, verifies operative procedure, surgical site, and laterality Entry 1 EU Perioperative Protocols Procedure(s) CYSTOSCOPY LOCAL Patient Identity Birthday, ID Band REZUM(.) Verified (select at Check, Patient least 2): Participation Consents / H and P HandP, Surgery/Procedure Operative Site N/A Verified Consent Marking Verified Surgical Site Yes Laterality Verified n/a Verified Procedure Verified Yes Correct Patient Yes Position Verified Availability Equipment, Medication Time Out YESSY Worrell RN, Verified (If Participants Angel Mendes CST, Applicable) Shabbir Ordonez MD, Terrence Franklin Time Out Complete 04/27/17 11:11:00 Allergies Reviewed? Yes Allergies Reviewed Self/Patient With Body Position Low Lithotomy Prep Area penis Prep Agents Betadine Solution Skin. Condition Red Description HEAD OF PENIS RED Additional None Specimens Collected Vitals - EU Blood Pressure 136/85 Pulse 80 bpm Respirations SPO2 EBL 0 IandO - EU Total Intake 0 mL Total Output 0 mL Outcomes Met? Yes Last Modified By: YESSY Worrell RN, Ruthann 04/27/17 11:32:25 Post-Care Text: The patient is free from signs and symptoms of injury caused by extraneous objects Case Comments Finalized By: YESSY Worrell RN, Ruthann Document Signatures Signed By: YESSY Worrell RN, Ruthann 04/27/17 11:32 YESSY Worrell RN, Ruthann 04/27/17 12:06 Normal [facility] Main OR Preoperative Recordo n 04-27-2017 Main OR Preoperative Record Holding Area Document Type FTURO Summary Primary Physician: Terrence Shea MD Finalized Date/Time: 04/27/17 12:06:27 Pt. Name: YOLIE CARDENAS /Sex: 1935 Male Med Rec #: [id number] Physician: Terrence Shea MD Financial #: [id number] Pt. Type: O Room/Bed: / Admit/Disch: 04/27/17 09:40:29 - Institution: Case Times Holding FTURO Pre-Care Text: Verifies consent for planned procedure, identifies individual values and wishes concerning care, includes family members in perioperative teaching Secures patient's records' belongings, and valuables, maintains patient's dignity and privacy, and maintains patient confidentiality Entry 1 In Holding 04/27/17 10:10:00 Outcomes Met? Yes Last Modified By: Ya Zambrano LPN 04/27/17 10:10:48 Post-Care Text: The patient participates in decisions affecting his or her perioperative plan of care The patient's right to privacy is maintained Surgery Checklist FTURO Entry 1 Patient Birthday, ID Band Procedure History and Physical, Identification: Check, Patient Verification: Surgical Consent, With Participation Patient NPO after Midnight: n/a Personal Items: Cataract Lens Implant, Glasses, Jewelry Personal Items watch Complaints of Pain: No Comment: Skin Integrity Intact, [place], Warm, & Dry Vitals - EU Blood Pressure 152/86 Pulse 66 bpm Respirations 18 br/min SPO2 RN Reviewed Yes Last Modified By: YESSY Worrell RN, Ruthann 04/27/17 11:12:33 Finalized By: YESSY Worrell RN, Ruthann Document Signatures Signed By: Ya Zambrano LPN 04/27/17 10:13 YESSY Worrell RN, Ruthann 04/27/17 12:06 YESSY Worrell RN, Ruthann 04/27/17 11:12 YESSY Worrell RN, Ruthann 04/27/17 12:06 Normal [facility] Operative Reporton 7 Operative Report Patient: YOLIE CARDENAS Age: 81 years Sex: Male : 1935 Associated Diagnoses: None Author: Terrence Shea MD Procedure Operative Information Details: Date/ Time: 04/27/17 11:20:00. Pre-Op Dx: BPH w/ LUTS - N40.1. Post-Op Dx: Same. Anesthesia Type: Local. Procedure: REZUM ablation of the prostate. Complications: None. Risks/Benefits/Inform ed Consent: Surgical risks, benefits, details of the procedure have been explained to the patient, Full informed consent has been obtained. Indications: The patient has BPH with LUTS and presents for the REZUM trans-urethral water vapor ablation of the prostate, He understands the risks, benefits, details of this procedure including but not limited to bleeding, infection, continued difficulties urinating, blood in the semen, pain during urination, increased urinary frequency, Despite these risks, among others, he wishes to proceed. Intraoperative Information Prepped: The patient is brought back to the operative suite, The patient is placed in the supine position, 10 cc of 2% viscous Xylocaine jelly prior to the catheterization, The bladder is catheterized with a 16 Fr straight catheter, 60 cc of 1% xylocaine solution is instilled followed by 10 cc of 2% viscous Xylocaine jelly, After waiting approximately 20 minutes, he is positioned in the modified dorso-lithotomy position and prepped in the usual fashion, The 30-degree cystoscope lens is placed, The anterior urethra, membranous urethra, and prostatic urethra is visualized. Procedure: The bladder demonstrates no tumor or stones, 4 targeted treatments were delivered to the prostate, staying at least 1 cm from the bladder neck, Each location is treated for 9 seconds, per protocol, 4 treatments were given into the lateral lobes by 1 cm, 0 treatments administered to the median lobe, The bladder is again inspected and is free of injury and is clear of blood clots, A Mccormack catheter is placed, the balloon inflated, and leg bag attached. Specimens Removed: None. Devices Implanted: None. Postoperative Information Discharge: The patient tolerates the procedure well and is discharged home in satisfactory condition, Discharge instructions are provided. [facility] Comment on above: Result Comment: Elec tronically Signed By: Terrence Shea MD\.br\Date and Time Signed: 04/27/17 11:21 EST Coding Summary.on 03-18-2017 Coding Summary. CODING DATE: 03/18/2017 FINAL [facility] STATUS: Home (Routine DC) PAYOR: Medicare APC DESCRIPTION 5372 Level 2 Urology and Related Services ADMIT DX: REASON FOR VISIT DX: N40.1 Benign prostatic hyperplasia with lower urinary tract symptoms FINAL DX: PRINCIPAL: N40.1 Benign prostatic hyperplasia with lower urinary tract symptoms SECONDARY: R39.14 Feeling of incomplete bladder emptying N32.89 Other specified disorders of bladder R31.21 Asymptomatic microscopic hematuria Z87.442 Personal history of urinary calculi E11.9 Type 2 diabetes mellitus without complications J45.909 Unspecified asthma, uncomplicated F32.9 Major depressive disorder, single episode, unspecified 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 However, the narrative phrase printed from the coding software may appear abbreviated, or result in slightly different terminology. Coded By: Flakita Álvarez Date Saved: 03/18/2017 10:34 am Normal [facility] Main OR Intraoperative Recor don 03-16-2017 Main OR Intraoperative Record IntraOp Document Type FTURO Summary Primary Physician: Terrence Shea MD Finalized Date/Time: 03/16/17 12:56:26 Pt. Name: YOLIE CARDENAS [place]/Sex: 1935 Male Med Rec #: [id number] Physician: Terrence Shea MD Financial #: [id number] Pt. Type: O Room/Bed: / Admit/Disch: 03/16/17 12:02:39 - Institution: Case Times FTURO Entry 1 Patient Times In Room 03/16/17 12:46:00 Out Room 03/16/17 12:59:00 Procedure Times Start 03/16/17 12:52:00 Stop 03/16/17 12:55:00 Anesthesia Times Last Modified By: Kimberlee Mata RN 03/16/17 12:56:23 Case Attendance FTURO Entry 1 Entry 2 Entry 3 Case Attendee Kimberlee Mata RN [employer], Terrence Estes MD Role Performed Yard Coordinator - Primary Scrub - Primary Surgeon - Primary Time In 03/16/17 12:46:00 03/16/17 12:46:00 03/16/17 12:46:00 Time Out 03/16/17 12:59:00 03/16/17 12:59:00 03/16/17 12:59:00 Procedure CYSTOSCOPY LOCAL(.) CYSTOSCOPY LOCAL(.) CYSTOSCOPY LOCAL(.) Comments Last Modified By: Kimberlee Mata RN, RN, Amanda R Ferris RN, Amanda R 03/16/17 12:56:24 03/16/17 12:56:24 03/16/17 12:56:24 Surgical Procedures FTURO Entry 1 Procedure Description Procedure CYSTOSCOPY LOCAL Modifiers . Surgeon Description CYSTOSCOPY Primary Procedure Yes Primary Surgeon Terrence Shea MD Start 03/16/17 12:52:00 Stop 03/16/17 12:55:00 Anesthesia Type Local Surgical Service Urology Wound Class 2 - Clean-Contaminated Last Modified By: Kimberlee Mata RN 03/16/17 12:55:46 General Case Data FTURO Pre-Care Text: Classifies surgical wound, implements aseptic technique, initiates traffic control Entry 1 Case Information OR URO 1 FT Case Level None Wound Class 2 - Clean-Contaminated Specialty Urology Preop Diagnosis HEMATURIA, INCOMPLETE Postop Same As Preop No EMPTYING, BPH WITH LUTS Postop Diagnosis HEMATURIA, INCOMPLETE Outcomes Met? Yes EMPTYING, PROSTATE REGROWTH, HIGH POST VOID RESIDUAL Last Modified By: Kimberlee Mata RN 03/16/17 12:55:40 Post-Care Text: The patient is free from signs and symptoms of infection EU IntraOp - FTURO Pre-Care Text: Implements protective measures prior to operative or invasive procedure, confirms identity before the operative or invasive procedure, verifies operative procedure, surgical site, and laterality Entry 1 EU Perioperative Protocols Procedure(s) CYSTOSCOPY LOCAL(.) Patient Identity Birthday, ID Band Verified (select at Check, Patient least 2): Participation Consents / H and P HandP, Surgery/Procedure Operative Site N/A Verified Consent Marking Verified Surgical Site Yes Laterality Verified n/a Verified Procedure Verified Yes Correct Patient Yes Position Verified Availability Equipment, Medication Time Out Kimberlee Mata RN, Verified (If Participants [place] MONSON, Applicable) Terrence Shea MD Time Out Complete 03/16/17 12:48:00 Allergies Reviewed? Yes Allergies Reviewed Self/Patient With Body Position Supine Prep Area PENIS Prep Agents Betadine Solution Skin. Condition Intact, [place], Warm, and Dry Additional None Specimens Collected Vitals - EU Blood Pressure Pulse Respirations SPO2 EBL 0 IandO - EU Total Intake 0 mL Total Output 0 mL Outcomes Met? Yes Last Modified By: Kimberlee Mata RN 03/16/17 12:47:31 Post-Care Text: The patient is free from signs and symptoms of injury caused by extraneous objects Case Comments Finalized By: Kimberlee Mata RN Document Signatures Signed By: Kimberlee Mata RN 03/16/17 12:56 Normal [facility] Main OR Preoperative Recordo n 03-16-2017 Main OR Preoperative Record Holding Area Document Type FTURO Summary Primary Physician: Terrence Shea MD Finalized Date/Time: 03/16/17 12:47:56 Pt. Name: YOLIE CARDENAS./Sex: 1935 Male Med Rec #: [id number] Physician: Terrence Shea MD Financial #: [id number] Pt. Type: O Room/Bed: / Admit/Disch: 03/16/17 12:02:39 - Institution: Case Times Holding FTURO Pre-Care Text: Verifies consent for planned procedure, identifies individual values and wishes concerning care, includes family members in perioperative teaching Secures patient's records' belongings, and valuables, maintains patient's dignity and privacy, and maintains patient confidentiality Entry 1 In Holding 03/16/17 12:22:00 Outcomes Met? Yes Last Modified By: Ya Zambrano LPN 03/16/17 12:22:20 Post-Care Text: The patient participates in decisions affecting his or her perioperative plan of care The patient's right to privacy is maintained Surgery Checklist FTURO Entry 1 Patient Birthday, ID Band Procedure History and Physical, Identification: Check, Patient Verification: Surgical Consent, With Participation Patient NPO after Midnight: n/a Personal Items: Cataract Lens Implant, Glasses, Jewelry Personal Items WATCH Complaints of Pain: No Comment: Skin Integrity Intact, [place], Warm, & Dry Vitals - EU Blood Pressure 150/81 Pulse 68 bpm Respirations 16 br/min SPO2 Additional None RN Reviewed Yes Specimens Collected Last Modified By: Kimberlee Mata RN 03/16/17 12:47:55 Finalized By: Kimberlee Mata RN Document Signatures Signed By: Ya Zambrano LPN 03/16/17 12:24 Kimberlee Mata RN 03/16/17 12:47 Normal [facility] Operative Reporton Operative Report Patient: YOLIE CARDENAS Age: 81 years Sex: Male : 1935 Associated Diagnoses: None Author: Terrence Shea MD Procedure Operative Information Details: Date/ Time: 03/16/17 13:00:00. Pre-Op Dx: BPH w/ LUTS - N40.1, Incomplete Bladder Emptying - R39.14. Post-Op Dx: Same. Anesthesia Type: Local. Procedure: Local Cystoscopy. Complications: None. Risks/Benefits/Inform ed Consent: Surgical risks, benefits, details of the procedure have been explained to the patient, Full informed consent has been obtained. Intraoperative Information Prepped: Patient is brought back to the endoscopy suite, Patient is placed in supine position, Patient prepped in the usual fashion with Betadine solution, 2% Xylocaine Jelly is placed per Urethra, After waiting several minutes the Cystoscope is introduced. The Urethra is: Normal. The Prostatic Urethra is: Obstructed. The Bladder is: Trabeculated (Severe (3), no bt.). The ureteral orifices: Show efflux of clear urine. Devices Implanted: None. Removal: Cystoscope is removed, The patient tolerated it well. Postoperative Information Discharge: Patient is discharged home with antibiotic coverage, Follow up arranged. Normal [facility] Comment on above: Result Comment: Elec tronically Signed By: Terrence Shea MD\.br\Date and Time Signed: 03/16/17 13:01 EST Encounters Encounter Date Encounter Type Care Provider Facility Start: 09-16-2022 End: 09-16-[address] TELMA PAUL . Facility:[facility] Start: 02-02-2022 End: 02-02-[address] TELMA PAUL . Facility:[facility] Start: 01-21-2022 End: 01-22-[address] TELMA PAUL . Facility: Start: 01-02-2022 End: 01-04-[address] TELMA PAUL . Facility: Start: 01-01-2022 End: 01-01-[address] TELMA PAUL . Facility: Start: 12-29-2021 End: 12-30-[address] DOCTOR CONTRERAS Facility: Start: 04-27-2017 End: 04-28-2017 Ambulatory Terrence Shea Facility:[facility] Start: 03-16-2017 End: 03-17-2017 Ambulatory Terrence Shea Facility:[facility] Procedures Date Procedure Procedure Detail Performing Clinician Start: 12-29-[address] DOCTOR CONTRERAS Comment on above: Performed By: #### I UMA, [id number], PSAD, FERR #### [facility] [address] [place] [address] Dr. Susan Matt Payers Date Payer Category Payer Medicare [id number] 1961 Medicare [id number] 1961 Unknown [id number] 1935 Unknown [id number] 2.16.84 [id number] 1935 Unknown [id number] 2.16.84 [id number] 1935 Unknown [id number] 2.16.84 [id number] 1935 Unknown [id number] 2.16.84 [id number] 1935 Unknown [id number] 2.16.84 [id number] 1935 Unknown [id number] 2.16.84 [id number] Summary Purpose Family History No Family History Records FoundNo Family History Records Found Advance Directives No Advanced Directives Records FoundNo Advanced Directives Records Found Additional Source Comments (unrecognized sect ion and content) No Status Records FoundNo Status Records Found INFORMATION SOURCE (unrecogn ized section and content) DATE CREATED AUTHOR 11/02/2017 [facility] DATE CREATED AUTHOR AUTHOR'S MILLER ATADELAIDA 09/20/2022 Mario Alberto ramirez FOR RECORDS PERTAINING TO PATIENTS WHO ARE OR HAVE BEEN ENROLLED IN A CHEMICAL DEPENDENCY/SUBSTANCEABUSE PROGRAM, SOME INFORMATION MAY BE OMITTED. This clinical summary was aggregated from multiple sources. Caution should be exercised in using it in the provision of clinical care. This summary normalizes information from multiple sources, and as a consequence, information in this document may materially change the coding, format and clinical context of patient data. In addition, data may be omitted in some cases. CLINICAL DECISIONS SHOULD BE BASED ON THE PRIMARY CLINICAL RECORDS. [facility] [employer] provides no warranty or guarantee of the accuracy or completeness of information in this document.
[2023-07-30 08:10] LABS: Basophils Absolute Auto 0.1 10^3/uL (0.0-0.1); Basophils Percent Auto 0.9 % (0.2-2.0); Eosinophils Absolute Auto 0.6 10^3/uL (0.0-0.7); Eosinophils Percent Auto 6.8 % (0.9-7.0); Hematocrit 33.4 % (42.0-54.0); Hemoglobin 10.6 g/dL (14.0-18.0); Immature Granulocytes Abs Auto 0.11 10^3/uL (0.00-0.03); Immature Granulocytes Pct Auto 1.2 % (0.0-0.5); Lymphocytes Absolute Auto 0.8 10^3/uL (1.2-3.8); Lymphocytes Percent Auto 8.7 % (20.5-60.0); Mean Corpuscular HGB Conc 31.7 g/dL (29.9-35.2); Mean Corpuscular Hemoglobin 31.6 pg (25.9-34.0); Mean Corpuscular Volume 99.7 fL (80.0-94.0); Mean Platelet Volume 11.4 fL (9.5-13.5); Monocytes Absolute Auto 0.9 10^3/uL (0.3-0.8); Monocytes Percent Auto 10.5 % (1.7-12.0); Neutrophils Absolute Auto 6.4 10^3/uL (1.4-6.5); Neutrophils Percent Auto 71.9 % (43.0-75.0); Platelet Count 199 10^3/uL (150-450); Red Blood Count 3.35 10^6/uL (4.70-6.10); Red Cell Distribution Width 14.2 % (11.0-15.0)
[2023-07-30 08:14] LABS: Estimated Average Glucose 154 mg/dL
[2023-07-30 08:57] LABS: Alanine Aminotransferase 25 U/L (16-63); Albumin Globulin Ratio 0.9; Albumin Level 3.1 g/dL (3.4-5.0); Alkaline Phosphatase 150 U/L (46-116); Anion Gap 14.4; Aspartate Amino Transferase 12 U/L (15-37); BUN Creatinine Ratio 14.9; Bilirubin Total 0.3 mg/dL (0.2-1.0); Calcium 8.6 mg/dL (8.5-10.1); Chloride 103 mmol/L (98-107); Chol HDL Ratio 4.8; Cholesterol 206 mg/dL (<=200); Estimated GFR (African America 49 (>=60); Estimated GFR (Non-African Ame 41 (>=60); Globulin 3.3 g/dL; Glucose 118 mg/dL (74-106); HDL Cholesterol 43 mg/dL (40-60); Potassium 4.4 mmol/L (3.5-5.1); Sodium 141 mmol/L (136-145); Thyroid Stimulating Hormone 4.087 uIU/mL (0.358-3.740); Total Protein 6.4 g/dL (6.4-8.2); Triglycerides 87 mg/dL (<=150); VLDL CHOLESTEROL 17.4 mg/dL
[2023-07-30 09:04] LABS: Prostate Specific Antigen Scrn 2.86 ng/mL (<=4.00)
== END 2023-07-30 02:37 | disposition home or self-care (01) ==
LOC: LAB 02:36
PROVIDERS: PCP Family Medicine; Visit Provider Family Medicine
DX: R06.02 Shortness of breath (principal); E11.9 Type 2 diabetes mellitus without complications; I10 Essential (primary) hypertension; R60.9 Edema, unspecified; E78.5 Hyperlipidemia, unspecified; Z12.12 Encounter for screening for malignant neoplasm of rectum
CPT/HCPCS: 36415; 80053; 80061; 83036; 84436; 84443; 84481; 85025; G0103